=== PATIENT | male | born 1985 | race Caucasian/White ===

== ENCOUNTER 2017-04-13 18:02 | Emergency (ER) | payer BC, OTHER ==
[2017-04-13 18:12] VITALS: BP 130/82
--- NOTE | 2017-04-13 18:17 | EDM.PDOC ---
ED HPI GENERAL MEDICAL PROBLEM - General Chief Complaint: General Stated Complaint: BUG BITE Time Seen by Provider: 04/13/17 18:17 Source of Information: Reports: Patient History Limitations: Reports: No Limitations - History of Present Illness INITIAL COMMENTS - FREE TEXT/NARRATIVE: Presents to the ER with painful swlling behind the right Ear. Reports that it started as a small boil and grew bigger. Rates pain as 6/10. No obvious fever, chills. No ear discharge. Presented to the ER for further evaluation of the right ear pain. Denied any other complaints. Onset Date: 04/09/17 Duration: Day(s): (started 4-5 days ago and seems to be getting worse), Getting Worse Location: Reports: Other (Right Ear) Quality: Reports: Sharp Severity: Severe Worsens with: Reports: None Associated Symptoms: Reports: No Other Symptoms - Related Data Allergies Allergy/AdvReac Type Severity Reaction Status Date / Time No Known Allergies Allergy Verified 04/13/17 18:06 Home Meds: Home Meds Cephalexin [Keflex] 500 mg PO TID #21 cap 04/13/17 [Rx] Social & Family History - Tobacco Use Smoking Status *Q: Former Smoker Used Tobacco, but Quit: Yes Month Tobacco Last Used: 2006 - Caffeine Use Caffeine Use: Reports: Soda - Alcohol Use Number of Drinks Per Day: 3 - Recreational Drug Use Recreational Drug Use: No ED ROS GENERAL - Review of Systems Review Of Systems: ROS reveals no pertinent complaints other than HPI. ED EXAM, GENERAL - Physical Exam Exam: See Below Exam Limited By: No Limitations General Appearance: Alert, WD/WN, No Apparent Distress Eye Exam: Bilateral Eye: EOMI Ears: Normal External Exam, Normal Canal, Normal TMs (Right Ear -- Furuncle post auricular area with surrounding cellulitis. Tender, erythematous) Nose: Normal Inspection, Normal Mucosa Throat/Mouth: Normal Inspection, Normal Lips, Normal Teeth, Normal Oropharynx Head: Atraumatic, Normocephalic Neck: Normal Inspection, Supple, Non-Tender, Full Range of Motion Respiratory/Chest: No Respiratory Distress, Lungs Clear, Normal Breath Sounds, No Accessory Muscle Use, Chest Non-Tender Cardiovascular: Normal Peripheral Pulses, Regular Rate, Rhythm, No Edema GI/Abdominal: Normal Bowel Sounds, Soft, Non-Tender, No Organomegaly, No Distention, No Abnormal Bruit Back Exam: Normal Inspection, Full Range of Motion Extremities: Normal Inspection, Normal Range of Motion, Non-Tender, No Pedal Edema, Normal Capillary Refill Neurological: Alert, Oriented, CN II-XII Intact, Normal Cognition, Normal Gait Psychiatric: Normal Affect, Normal Mood Skin Exam: Warm, Intact, Normal Color, No Rash Course - Vital Signs Last Recorded V/S: Last Vital Signs Temp 37.0 C 04/13/17 18:10 Pulse 83 04/13/17 18:10 Resp 16 04/13/17 18:10 BP 130/82 04/13/17 18:10 Pulse Ox 98 04/13/17 18:10 Departure - Departure Time of Disposition: 18:36 Disposition: Home, Self-Care 01 Clinical Impression: Cellulitis of earlobe - Discharge Information Prescriptions: Cephalexin [Keflex] 500 mg PO TID #21 cap Forms: ED Department Discharge Additional Instructions: Follow with PCP Ibuprofen for pain Return if symptoms worsen Call your Physician or Return to Emergency Department if: * Your condition worsens in any way. * You develop fever greater than 100.4. * You have vomitting that does not stop with medications. * You have pain that is not controlled with medications.
[2017-04-13] MEDS ORDERED: Cephalexin 500 MG Cap PO ONE (18:54)
== END 2017-04-13 19:12 | disposition home or self-care (01) ==
LOC: FB.ED 18:02
DX: H60.11 Cellulitis of right external ear (principal); Z87.891 Personal history of nicotine dependence
CPT/HCPCS: 99283; A9270

== ENCOUNTER 2020-10-05 20:49 | Emergency (ER) | payer OTHER ==
[2020-10-05 21:07] VITALS: PULSE 79
[2020-10-05] MEDS ORDERED: Ketorolac 60 MG/2 ML SDV IM ONE (21:14)
--- NOTE | 2020-10-05 21:20 | EDM.PDOC ---
ED HPI GENERAL MEDICAL PROBLEM - General Chief Complaint: Lower Extremity Injury/Pain Stated Complaint: FOOT Time Seen by Provider: 10/05/20 21:08 Source of Information: Reports: Patient History Limitations: Reports: No Limitations - History of Present Illness INITIAL COMMENTS - FREE TEXT/NARRATIVE: states he woke this am with pain in the left big toe: unsure whether he injured the toe as he jumped into bed last night he does not recall that but thinks he may have dislocated the foot has never had gout, but pain is similar to gout Onset: Today Onset Date: 10/05/20 Duration: Hour(s):, Getting Worse Location: Reports: Lower Extremity, Left Quality: Reports: Ache, Dull, Stabbing Severity: Moderate Improves with: Reports: Heat Therapy Worsens with: Reports: Movement Associated Symptoms: Reports: No Other Symptoms 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 ED EXAM, GENERAL - Physical Exam Exam: See Below Exam Limited By: No Limitations General Appearance: Alert, WD/WN, Mild Distress (from pain) Eye Exam: Bilateral Eye: EOMI Ears: Normal External Exam Ear Exam: Bilateral Ear: TM normal Nose: Normal Inspection, Normal Mucosa Throat/Mouth: Normal Oropharynx Head: Atraumatic, Normocephalic Neck: Supple, Non-Tender Respiratory/Chest: No Respiratory Distress, Lungs Clear Cardiovascular: Normal Peripheral Pulses, Regular Rate, Rhythm GI/Abdominal: Soft, Non-Tender Extremities: Normal Range of Motion, Joint Swelling, Limited Range of Motion, Increased Warmth, Redness (left big toe) Neurological: Alert, Oriented, CN II-XII Intact Psychiatric: Normal Affect, Normal Mood Skin Exam: Warm, Dry, Intact Course - Vital Signs Last Recorded V/S: Last Vital Signs Temp 36.7 C 10/05/20 21:05 Pulse 79 10/05/20 21:05 Resp 16 10/05/20 21:05 BP 154/86 H 10/05/20 21:05 Pulse Ox 99 10/05/20 21:05 - Orders/Labs/Meds Orders: Active Orders 24 hr Category Date Time Status Foot Comp Min 3V Lt [CR] Stat Exams 10/05/20 21:13 Taken Labs: Laboratory Tests 10/05/20 Range/Units 21:20 Uric Acid 9.6 H* (2.6-6.0) mg/dL Meds: Medications Discontinued Medications Generic Name Dose Route Start Last Admin Trade Name Vy PRN Reason Stop Dose Admin Ketorolac Tromethamine 60 mg 10/05/20 21:14 10/05/20 21:18 Toradol IM 10/05/20 21:15 60 mg ONETIME ONE Administration - Re-Assessments/Exams Free Text/Narrative Re-Assessment/Exam: 10/05/20 21:19 xray of foot done and since he had never had gout, Uric acid levels ordered pt given a dose of Toradol Departure - Departure Time of Disposition: 22:00 Disposition: Home, Self-Care 01 Condition: Fair Clinical Impression: Gout - Discharge Information *PRESCRIPTION DRUG MONITORING PROGRAM REVIEWED*: Not Applicable *COPY OF PRESCRIPTION DRUG MONITORING REPORT IN PATIENT [place]: Not Applicable Instructions: Low-Purine Eating Plan, Calcium Pyrophosphate Deposition Referrals: PCP,None [Primary Care Provider] - Forms: ED Department Discharge Additional Instructions: Keep toe warm elevated Avoid purine producing food , Avoid beer Follow up with your PCP Sepsis Event Note (ED) - Evaluation Sepsis Screening Result: No Definite Risk - Focused Exam Vital Signs: Vital Signs Temp Pulse Resp BP Pulse Ox 10/05/20 21:05 36.7 C 79 16 154/86 H 99 - My Orders Last 24 Hours: My Active Orders 10/05/20 21:13 Foot Comp Min 3V Lt [CR] Stat - Assessment/Plan Last 24 Hours: My Active Orders 10/05/20 21:13 Foot Comp Min 3V Lt [CR] Stat
[2020-10-05 22:49] VITALS: BP 134/86
== END 2020-10-05 22:05 | disposition home or self-care (01) ==
LOC: FB.ED 20:49
DX: M10.9 Gout, unspecified (principal)
CPT/HCPCS: 36415; 73630; 84550; 96372; 99283; J1885

== ENCOUNTER 2021-12-21 16:43 | Emergency (ER) | payer OTHER ==
[2021-12-21 16:57] VITALS: BP 126/79; PULSE 72
[2021-12-21] MEDS ORDERED: Ketorolac 30 MG/ML SDV IM STA (17:21)
== END 2021-12-21 17:35 | disposition home or self-care (01) ==
LOC: FB.ED 16:43
DX: S20.211A Contusion of right front wall of thorax, initial encounter (principal); W01.0XXA Fall on same level from slipping, tripping and stumbling without subsequent striking against object, initial encounter
CPT/HCPCS: 71101; 96372; 99283; J1885